=== PATIENT | female | born 2000 | race Caucasian/White ===

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

== ENCOUNTER → 2021-02-03 | Outpatient (CLI) | payer OTHER ==
--- NOTE | 2021-02-03 16:56 | US ---
EXAMINATION TYPE: US OB anatomy trans abd DATE OF EXAM: 02/03/2021 COMPARISON: NONE HISTORY: Z36 Confirm dates Patient has yet to see OB, first US to assess baby and anatomy, no abnorma l symptoms, TECHNIQUE: OBTA EXAM MEASUREMENTS: GESTATIONAL AGE / DATING Physician Established: (22 weeks/3 days) EDC: 06/06/2021 Dates by LMP: unknown Dates by First Scan: No previous Dates by Current Scan for: (21 weeks/6 days) EDC: 06/10/2021 SURVEY IUP: Single PLACENTA: Anterior PREVIA: No previa DESHAUN: 16.1 cm Normal CERVICAL LENGTH (transabdominal: norm > 3.0cm): 3.3 cm BIOMETRY PRESENTATION: Vertex LIE: Longitudinal BPD: 5.2 cm 21 weeks / 6 days HC: 19.4 cm 21 weeks / 5 days AC: 16.2 cm 21 weeks / 3 days FL: 3.8 cm 22 weeks / 0 days ESTIMATED WEIGHT IN GRAMS: 437 grams ESTIMATED WEIGHT IN LBS/OZ: 0 lbs. 15 oz. WEIGHT PERCENTAGE BASED ON ESTABLISHED DATE: 12 % HC/AC: 1.2 Normal FL/AC: 23 Normal HEART RATE: 172 bpm RHYTHM: Normal ANATOMY SEEN (within normal limits): * Lateral Vent (< 1 cm) 0.5 cm * Cisterna Magna (< 1.1 cm) 0.5 cm * Nuchal Fold (< 0.6 cm) 0.3 cm * Cerebellum (varies with age) 2.4 cm Choroid Plexus (bilateral) Midline Falx Cavus Septi Pellucidi Four Chamber Heart Outflow tracts: LVOT/RVOT Stomach Situs Nose / Lips Diaphragm Kidneys (bilateral) Bladder Cord Insert Three Vessel Cord Longitudinal Spine Transverse Spine Arms (bilateral) Legs (bilateral) IMPRESSION: 1. Single intrauterine with an average ultrasound gestational age of 21 weeks and 6 days. L ast menstrual period percentile is 12th percentile. Gestational age by last menstrual period is 22 we eks and 3 days Please see findings above.
== END | disposition home or self-care (01) ==
LOC: RADUSWWP 12:28
PROVIDERS: ATTEND Obstetrics & Gynecology
DX: Z36.89 Encounter for other specified antenatal screening (principal); Z3A.21 21 weeks gestation of pregnancy
CPT/HCPCS: 76811

== ENCOUNTER 2021-06-09 11:59 | Emergency (ER) | payer OTHER ==
[2021-06-09 12:31] VITALS: TEMP 98.5
--- NOTE | 2021-06-09 12:31 | ED ---
General Adult HPI - General Source: patient, RN notes reviewed Mode of arrival: ambulatory Limitations: no limitations <Miki Zimmerman - Last Filed: 06/09/21 12:29> - General Source: patient, RN notes reviewed - History of Present Illness -: days(s) (1) Severity scale (1-10): 0 Associated Symptoms: cough, other Treatments Prior to Arrival: none (Nasal congestion) <Juan Escalante - Last Filed: 06/09/21 16:14> - General Stated complaint: cough/40 wks preg/sent by pcp Time Seen by Provider: 06/09/21 12:24 - History of Present Illness Initial comments: This a 21-year-old female presents emergency Department chief complaint of cough congestion. Patient states she has no symptoms a couple days ago. Patient called her [employer] office who recommended #give evaluated. Patient states she is 40 weeks schedule have an appointment with her [employer]CH[employer] tomorrow Dr. Landeros. Patient states she is A0 currently 40 weeks . Patient states she was unaware for evaluation of a cough throughout COVID-19. (Miki Zimmerman) This is a well-appearing 21-year-old female that presents to the emergency room with cough and congestion. She states that this developed yesterday. She is 40 weeks . Her covid test is negative today. She denies any fevers, abdominal pain or sore throat. She has had no recent sick contacts. She has an appointment to see her SPL[employer] ARCHIT[employer] Dr. Mcneal tomorrow. (Juan Escalante) - Related Data Allergies Allergy/AdvReac Type Severity Reaction Status Date / Time No Known Allergies Allergy Verified 06/09/21 12:27 Review of Systems ROS Other: All systems not noted in ROS Statement are negative. <Miki Zimmerman - Last Filed: 06/09/21 12:29> ROS Other: All systems not noted in ROS Statement are negative. <Juan Escalante - Last Filed: 06/09/21 16:14> ROS Statement: Those systems with pertinent positive or pertinent negative responses have been documented in the HPI. Past Medical History Past Medical History: No Reported History History of Any Multi-Drug Resistant Organisms: None Reported Past Surgical History: No Surgical Hx Reported Past Psychological History: No Psychological Hx Reported Past Alcohol Use History: None Reported Past Drug Use History: None Reported <Miki Zimmerman - Last Filed: 06/09/21 12:29> General Exam General appearance: alert, in no apparent distress Head exam: Present: atraumatic, normocephalic, normal inspection Eye exam: Present: normal appearance, PERRL, EOMI. Absent: scleral icterus, conjunctival injection, periorbital swelling ENT exam: Present: normal exam, normal oropharynx, mucous membranes moist Neck exam: Present: normal inspection, full ROM. Absent: tenderness, meningismus, lymphadenopathy Respiratory exam: Present: normal lung sounds bilaterally. Absent: respiratory distress, wheezes, rales, rhonchi, stridor Cardiovascular Exam: Present: tachycardia GI/Abdominal exam: Present: soft, distended (40 weeks ), normal bowel sounds. Absent: tenderness, guarding, rebound, rigid Back exam: Absent: tenderness Neurological exam: Present: alert, oriented X3, CN II-XII intact Psychiatric exam: Present: normal affect, normal mood Skin exam: Present: warm, dry, intact, normal color. Absent: rash, cyanosis, diaphoretic, petechiae, pallor <Juan Escalante - Last Filed: 06/09/21 16:14> Course Vital Signs 06/09/21 06/09/21 06/09/21 12:27 14:49 15:06 Temperature 98.5 F Pulse Rate 122 H 120 H 123 H Respiratory 18 20 Rate Blood Pressure 138/82 177/91 118/89 O2 Sat by Pulse 93 L Oximetry 06/09/21 15:33 Temperature Pulse Rate 113 H Respiratory Rate Blood Pressure O2 Sat by Pulse 98 Oximetry Medical Decision Making - Lab Data Result diagrams: 06/09/21 15:04 06/09/21 15:04 <Juan Escalante - Last Filed: 06/09/21 16:14> - Medical Decision Making Labs were ordered and drawn by the previous shift. I did speak with Dr. Ramsey regarding the results and he suggested patient be sent up to labor and delivery for evaluation of preeclampsia. (Juan Escalante) - Lab Data Lab Results 06/09/21 06/09/21 06/09/21 Range/Units 12:57 15:04 15:04 WBC 12.6 H (3.8-10.6) k/uL RBC 4.40 (3.80-5.40) m/uL Hgb 11.2 L (11.4-16.0) gm/dL Hct 33.9 L (34.0-46.0) % MCV 77.0 L (80.0-100.0) fL MCH 25.3 (25.0-35.0) pg MCHC 32.9 (31.0-37.0) g/dL RDW 15.4 (11.5-15.5) % Plt Count 228 (150-450) k/uL MPV 10.3 Neutrophils % 83 % Lymphocytes % 9 % Monocytes % 6 % Eosinophils % 1 % Basophils % 0 % Neutrophils # 10.4 H (1.3-7.7) k/uL Lymphocytes # 1.1 (1.0-4.8) k/uL Monocytes # 0.8 (0-1.0) k/uL Eosinophils # 0.1 (0-0.7) k/uL Basophils # 0.0 (0-0.2) k/uL Hypochromasia Slight Poikilocytosis Slight Microcytosis Slight Sodium (137-145) mmol/L Potassium (3.5-5.1) mmol/L Chloride (98-107) mmol/L Carbon Dioxide (22-30) mmol/L Anion Gap mmol/L BUN (7-17) mg/dL Creatinine (0.52-1.04) mg/dL Est GFR (CKD-EPI)AfAm (>60 ml/min/1.73 sqM) Est GFR (CKD-EPI)NonAf (>60 ml/min/1.73 sqM) Glucose (74-99) mg/dL Uric Acid (3.7-7.4) mg/dL Calcium (8.4-10.2) mg/dL Magnesium (1.6-2.3) mg/dL Total Bilirubin (0.2-1.3) mg/dL AST (14-36) U/L ALT (4-34) U/L Alkaline Phosphatase (38-126) U/L Lactate Dehydrogenase (313-618) U/L Total Protein (6.3-8.2) g/dL Albumin (3.5-5.0) g/dL Urine Color Yellow Urine Appearance Cloudy H (Clear) Urine pH 5.5 (5.0-8.0) Ur Specific [place] 1.020 (1.001-1.035) Urine Protein 1+ H (Negative) Urine Glucose (UA) Negative (Negative) Urine Ketones Negative (Negative) Urine Blood Negative (Negative) Urine Nitrite Negative (Negative) Urine Bilirubin Negative (Negative) Urine Urobilinogen <2.0 (<2.0) mg/dL Ur Leukocyte Esterase Large H (Negative) Urine RBC 6 H (0-5) /hpf Urine WBC 39 H (0-5) /hpf Ur Squamous Epith Cells 15 H (0-4) /hpf Urine Bacteria Occasional H (None) /hpf Hyaline Casts 4 H (0-2) /lpf Urine Mucus Moderate H (None) /hpf Urine Yeast (Budding) Occasional H (None) /hpf Coronavirus (PCR) Not Detected (Not Detectd) 06/09/21 Range/Units 15:04 WBC (3.8-10.6) k/uL RBC (3.80-5.40) m/uL Hgb (11.4-16.0) gm/dL Hct (34.0-46.0) % MCV (80.0-100.0) fL MCH (25.0-35.0) pg MCHC (31.0-37.0) g/dL RDW (11.5-15.5) % Plt Count (150-450) k/uL MPV Neutrophils % % Lymphocytes % % Monocytes % % Eosinophils % % Basophils % % Neutrophils # (1.3-7.7) k/uL Lymphocytes # (1.0-4.8) k/uL Monocytes # (0-1.0) k/uL Eosinophils # (0-0.7) k/uL Basophils # (0-0.2) k/uL Hypochromasia Poikilocytosis Microcytosis Sodium 134 L (137-145) mmol/L Potassium 4.4 (3.5-5.1) mmol/L Chloride 105 (98-107) mmol/L Carbon Dioxide 20 L (22-30) mmol/L Anion Gap 9 mmol/L BUN 7 (7-17) mg/dL Creatinine 0.46 L (0.52-1.04) mg/dL Est GFR (CKD-EPI)AfAm >90 (>60 ml/min/1.73 sqM) Est GFR (CKD-EPI)NonAf >90 (>60 ml/min/1.73 sqM) Glucose 71 L (74-99) mg/dL Uric Acid 2.7 L (3.7-7.4) mg/dL Calcium 9.3 (8.4-10.2) mg/dL Magnesium 1.9 (1.6-2.3) mg/dL Total Bilirubin 0.3 (0.2-1.3) mg/dL AST 28 (14-36) U/L ALT 9 (4-34) U/L Alkaline Phosphatase 192 H (38-126) U/L Lactate Dehydrogenase 636 H (313-618) U/L Total Protein 6.6 (6.3-8.2) g/dL Albumin 3.4 L (3.5-5.0) g/dL Urine Color Urine Appearance (Clear) Urine pH (5.0-8.0) Ur Specific [place] (1.001-1.035) Urine Protein (Negative) Urine Glucose (UA) (Negative) Urine Ketones (Negative) Urine Blood (Negative) Urine Nitrite (Negative) Urine Bilirubin (Negative) Urine Urobilinogen (<2.0) mg/dL Ur Leukocyte Esterase (Negative) Urine RBC (0-5) /hpf Urine WBC (0-5) /hpf Ur Squamous Epith Cells (0-4) /hpf Urine Bacteria (None) /hpf Hyaline Casts (0-2) /lpf Urine Mucus (None) /hpf Urine Yeast (Budding) (None) /hpf Coronavirus (PCR) (Not Detectd) Disposition <Miki Zimmerman - Last Filed: 06/09/21 12:29> Is patient prescribed a controlled substance at d/c from ED?: No Time of Disposition: 15:56 <Juan Escalante - Last Filed: 06/09/21 16:14> Clinical Impression: Preeclampsia Disposition: HOME SELF-CARE Instructions (If sedation given, give patient instructions): Preeclampsia During (ED) Referrals: Miguel Harrell MD [Primary Care Provider] - 1-2 days
[2021-06-09 14:55] VITALS: RESP 20
[2021-06-09 15:07] VITALS: BP 118/89
[2021-06-09 15:25] LABS: Appearance,Urine Cloudy (Clear); Bacteria,Urine Occasional /hpf; Bilirubin,Urine Negative (Negative); Blood,Urine Negative (Negative); Budding Yeast,Urine Occasional /hpf; Color,Urine Yellow; Glucose,Urine (UA) Negative (Negative); Hyaline Casts,Urine 4 /lpf (0-2); Ketones,Urine Negative (Negative); Leukocyte Esterase,Urine Large (Negative); Mucus,Urine Moderate /hpf; Nitrite,Urine Negative (Negative); PH, Urine 5.5 (5.0-8.0); Protein,Urine 1+ (Negative); RBC,Urine 6 /hpf (0-5); Squamous Epithelial Cell,Urine 15 /hpf (0-4); Urobilinogen,Urine <2.0 mg/dL (<2.0); WBC,Urine 39 /hpf (0-5)
[2021-06-09 15:32] LABS: Basophils % (A) 0 %; Eosinophils # (A) 0.1 k/uL (0-0.7); Eosinophils % (A) 1 %; HCT 33.9 % (34.0-46.0); HGB 11.2 gm/dL (11.4-16.0); Hypochromasia Slight; Lymphocytes # (A) 1.1 k/uL (1.0-4.8); Lymphocytes % (A) 9 %; MCH 25.3 pg (25.0-35.0); MCHC 32.9 g/dL (31.0-37.0); Mean Platelet Volume 10.3; Microcytosis Slight; Monocytes # (A) 0.8 k/uL (0-1.0); Monocytes % (A) 6 %; Neutrophils # (A) 10.4 k/uL (1.3-7.7); Neutrophils % (A) 83 %; Platelet Count 228 k/uL (150-450); Poikilocytosis Slight; RDW 15.4 % (11.5-15.5); WBC 12.6 k/uL (3.8-10.6)
[2021-06-09 15:33] VITALS: PULSE 113
[2021-06-09 15:42] LABS: ALT 9 U/L (4-34); AST 28 U/L (14-36); African American GFR (CKD) >90 (>60 ml/min/1.73 sqM); Albumin 3.4 g/dL (3.5-5.0); Alkaline Phosphatase 192 U/L (38-126); Anion Gap 9 mmol/L; Blood Urea Nitrogen 7 mg/dL (7-17); Calcium 9.3 mg/dL (8.4-10.2); Carbon Dioxide 20 mmol/L (22-30); Chloride 105 mmol/L (98-107); Glucose 71 mg/dL (74-99); LDH 636 U/L (313-618); Magnesium 1.9 mg/dL (1.6-2.3); Non-African American GFR(CKD) >90 (>60 ml/min/1.73 sqM); Potassium 4.4 mmol/L (3.5-5.1); Sodium 134 mmol/L (137-145); Total Bilirubin 0.3 mg/dL (0.2-1.3); Total Protein 6.6 g/dL (6.3-8.2); Uric Acid 2.7 mg/dL (3.7-7.4)
== END 2021-06-09 15:58 | disposition home or self-care (01) ==
LOC: EC 11:59
DX: O14.93 Unspecified pre-eclampsia, third trimester (principal); O99.891 Other specified diseases and conditions complicating pregnancy; R05 Cough; R09.81 Nasal congestion; Z3A.40 40 weeks gestation of pregnancy; Z20.822 Contact with and (suspected) exposure to COVID-19
CPT/HCPCS: 36415; 80053; 81001; 83615; 83735; 84550; 85025; 87086; 87635; 99283

== ENCOUNTER 2021-06-09 16:07 | Inpatient (IN) | payer OTHER ==
[2021-06-09] MEDS ORDERED: CARBOPROST TROMETHAMINE 250 MCG/ML 1 ML AMP IM PRN (17:36)
[2021-06-09] MEDS ORDERED: LIDOCAINE 0.5% (PF) 5 MG/ML (50 ML SDV) SQ PRN (17:36)
[2021-06-09] MEDS ORDERED: TERBUTALINE 1 MG/ML VIAL SQ PRN (17:36)
[2021-06-09] MEDS ORDERED: OXYTOCIN 10 UNIT/ML 1 ML VIAL IM PRN (17:36)
[2021-06-09] MEDS ORDERED: METHYLERGONOVINE 0.2 MG/ML 1 ML AMP IM PRN (17:36)
[2021-06-09] MEDS ORDERED: OXYTOCIN 30 UNITS/500 ML NS 30 UNIT in SALINE 1 500ML.BAG IV SCH (17:45)
[2021-06-09] MEDS ORDERED: guaiFENesin SYRUP 100MG/5ML 200 MG/10 ML CUP PO PRN (18:05)
[2021-06-09 18:39] LABS: Amphetamine Screen,Urine Not Detected (NotDetected); Barbiturate Screen,Urine Not Detected (NotDetected); Benzodiazepines Screen,Urine Not Detected (NotDetected); Cocaine Screen,Urine Not Detected (NotDetected); Methadone Screen, Urine Not Detected (NotDetected); Opiate Screen,Urine Not Detected (NotDetected); Oxycodone Screen, Urine Not Detected (NotDetected); Phencyclidine Screen,Urine Not Detected (NotDetected); Tricyclic Antidepressant,Urine Not Detected (NotDetected); Urn Cannabinoid Scrn Not Detected (NotDetected)
--- NOTE | 2021-06-09 18:53 | P.HPOB ---
History of Present Illness H&P Date: 06/09/21 Chief Complaint: Intrauterine at term: Gestational hypertension: S jesus alberto NORRIS is a 21-year-old at 39 weeks gestation who arrives from the emergency room following episode of upper respiratory infection. She was seen in the emergency room and noted to have an elevated blood pressures in the emergency room and therefore preeclamptic labs were ordered through the emergency room. They were per [place] normal with slight elevation of LDH. 1+ protein but there was blood and other components within a poor urine sample with squamous epithelial cells. Difficult to relate whether that is truly protein positive or not. She was brought to labor and delivery where nonstress test was reactive and otherwise blood pressures have been mildly elevated with one blood pressure 1 4135 several the 130s over 80s and then a 130/101. She denies symptoms of preeclampsia no headache, epigastric pain or visual changes there is no other signs or symptoms with normal deep tendon reflexes and otherwise she is stable. 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 That is approximately 12-18 weeks of lack of care. Groupie strep is unknown. We'll plan group B strep prophylaxis. Due to gestational hypertension and sporadic care. She is being admitted with plan for induction in a.m. once she can get 2 doses of antibiotics for group B strep prophylaxis. Should she have any significant elevations in blood pressure signs or symptoms of eclampsia or other problems through the night we will initiate induction at that time. She is dilated 3 cm 70% effaced and -2 station. She relates no other competitions or issues at this time. And at least for now QUESTIONS are answered for her. Past Medical History Past Medical History: No Reported History History of Any Multi-Drug Resistant Organisms: None Reported Past Surgical History: No Surgical Hx Reported Past Anesthesia/Blood Transfusion Reactions: No Reported Reaction Past Psychological History: No Psychological Hx Reported Smoking Status: Former smoker Past Alcohol Use History: None Reported Past Drug Use History: None Reported Additional Drug Use History / Comment(s): pt has history of meth use, last used Sep 20 - Past Family History Sister(s) Family Medical History: Asthma Father Family Medical History: Musculoskeletal Disorder Additional Family Medical History / Comment(s): issues with back Mother Additional Family Medical History / Comment(s): personality disorder Medications and Allergies Home Medications Medication Instructions Recorded Confirmed Type Pnv No.95/Ferrous Fum/Folic AC 1 each PO DAILY 06/09/21 06/09/21 History [ Multivitamin Tablet] Allergies Allergy/AdvReac Type Severity Reaction Status Date / Time No Known Allergies Allergy Verified 06/09/21 12:27 Exam Osteopathic Statement: *. No significant issues noted on an osteopathic structural exam other than those noted in the History and Physical/Consult. Vital Signs Temp Pulse Resp BP 06/09/21 17:05 98.1 F 111 H 18 138/101 Intake and Output 06/09/21 06/09/21 06/09/21 06:59 14:59 22:59 Other: Weight 82.1 kg - OBG Physical Exam Breast: both: normal (no masses) Abdomen: bowel sounds normal, no diffuse tenderness, no bruit present, no guarding noted, no hepatomegaly, no splenomegaly, no mass Vulva: both: normal Vagina: normal moisture, no discharge Cervix: no lesion, no discharge Uterus: normal size, normal contour Adnexa: both: normal Anus/Rectum: normal perianal skin, no rectal mass, no hemorrhoids, heme negative
[2021-06-09] MEDS: LACTATED RINGERS 1,000 ML IV SCH (21:39)
[2021-06-10] MEDS: LACTATED RINGERS 1,000 ML IV SCH ×3 (01:38→09:57)
[2021-06-10] MEDS ORDERED: AMPICILLIN 2,000 MG in SODIUM CHLORIDE 0.9% 100 ML IVPB ONE (06:00)
[2021-06-10 06:21] LABS: Basophils % (A) 0 %; Eosinophils # (A) 0.1 k/uL (0-0.7); Eosinophils % (A) 1 %; HCT 32.8 % (34.0-46.0); HGB 10.5 gm/dL (11.4-16.0); Hypochromasia Slight; Lymphocytes # (A) 1.3 k/uL (1.0-4.8); Lymphocytes % (A) 11 %; Mean Platelet Volume 9.5; Monocytes # (A) 0.6 k/uL (0-1.0); Monocytes % (A) 5 %; Neutrophils # (A) 9.3 k/uL (1.3-7.7); Neutrophils % (A) 81 %; Platelet Count 226 k/uL (150-450); RBC 4.21 m/uL (3.80-5.40); RDW 15.2 % (11.5-15.5); WBC 11.5 k/uL (3.8-10.6)
[2021-06-10] MEDS ORDERED: fentaNYL (PF) 50 MCG/ML 5 ML AMP ONE (09:45)
[2021-06-10] MEDS ORDERED: SODIUM CHLORIDE 0.9% 100 ML BAG ONE (09:45)
[2021-06-10] MEDS ORDERED: ROPIVACAINE 5MG/ML 20ML VIAL ONE (09:45)
[2021-06-10] MEDS ORDERED: AMPICILLIN 1,000 MG in SODIUM CHLORIDE 0.9% 50 ML IVPB SCH (11:00)
[2021-06-10] MEDS ORDERED: diphenhydrAMINE 50 MG/ML 1 ML VIAL IVP PRN ×2 (12:34)
[2021-06-10] MEDS ORDERED: BENZOCAINE/MENTHOL SPRAY 1 GM/SPRAY AEROSOL TOPICAL PRN (12:34)
[2021-06-10] MEDS ORDERED: ACETAMINOPHEN TAB 325 MG TAB PO PRN (12:34)
[2021-06-10] MEDS ORDERED: LANOLIN CREAM 5 GM TUBE TOPICAL PRN (12:34)
[2021-06-10] MEDS ORDERED: diphenhydrAMINE 50 MG CAP PO PRN (12:34)
[2021-06-10] MEDS ORDERED: HYDROCORTISONE 2.5% RECTAL CREAM 30 GM TUBE RECTAL PRN (12:34)
[2021-06-10] MEDS ORDERED: SIMETHICONE 80 MG CHEWABLE PO PRN (12:34)
[2021-06-10] MEDS ORDERED: diphenhydrAMINE 25 MG CAP PO PRN (12:34)
[2021-06-10] MEDS ORDERED: ZOLPIDEM 5 MG TAB PO PRN (12:34)
--- NOTE | 2021-06-10 12:34 | P.PROBDLV ---
Vaginal Delivery Note - . Vaginal Delivery Note: 29-year-old presented at 40 weeks for induction of labor due to gestational hypertension. She has had no care except anatomy ultrasound which was normal. Her cervix is 3 cm dilated, 80% effaced, and -2 station. She is rahul irregularly. heart tones 130 with moderate variability and reactive. Pitocin augmentation was started amniotomy performed at 8:29 AM and clear fluid noted. She did get an epidural soon thereafter. Her cervix was completely dilated at 11:59 AM. She pushed, rub viable male infant over intact perineum under epidural anesthesia at 12:05 PM. Head delivered OA, anterior shoulder delivered gentle downward guidance followed by posterior shoulder and rest of body. Nose and mouth bulb suctioned, cord cut, infant placed mother's abdomen. Apgars 9, 9, weight 7 lbs. 7 oz. Placenta delivered spontaneously, intact with three-vessel cord at 1208. Vagina, cervix, perineum inspected. Left labial laceration was repaired with 3-0 Vicryl. Estimated blood loss 200 mL. Mother and baby in stable condition.
[2021-06-10] MEDS ORDERED: OXYTOCIN 30 UNITS/500 ML NS 30 UNIT in SALINE 1 500ML.BAG IV SCH (12:45)
[2021-06-10] MEDS: IBUPROFEN 600 MG TAB PO PRN (18:37)
[2021-06-10] MEDS: SENNOSIDES-DOCUSATE SODIUM 1 EACH TAB PO SCH (20:17)
[2021-06-10 20:58] LABS: HIV 2 AB Non-Reactive (Non-Reactive); HIV AB P24 Non-Reactive (Non-Reactive); HIV P24 AG Non-Reactive (Non-Reactive)
[2021-06-10 22:40] LABS: Hepatitis B Surface Antigen Non-Reactive (Non-Reactive)
[2021-06-11] MEDS: IBUPROFEN 600 MG TAB PO PRN ×2 (04:48→14:32)
[2021-06-11 06:33] LABS: Basophils % (A) 0 %; Eosinophils # (A) 0.1 k/uL (0-0.7); Eosinophils % (A) 2 %; HCT 30.4 % (34.0-46.0); Hypochromasia Slight; Lymphocytes # (A) 1.5 k/uL (1.0-4.8); Lymphocytes % (A) 17 %; MCH 25.5 pg (25.0-35.0); MCHC 32.9 g/dL (31.0-37.0); MCV 77.4 fL (80.0-100.0); Mean Platelet Volume 9.7; Microcytosis Slight; Monocytes # (A) 0.5 k/uL (0-1.0); Monocytes % (A) 6 %; Neutrophils % (A) 71 %; Platelet Count 200 k/uL (150-450); Poikilocytosis Slight; RBC 3.92 m/uL (3.80-5.40); RDW 15.7 % (11.5-15.5); WBC 8.5 k/uL (3.8-10.6)
--- NOTE | 2021-06-11 07:48 | P.DS ---
Providers Date of admission: 06/09/21 17:00 Expected date of discharge: 06/11/21 Attending physician: Margarita Mcneal Primary care physician: Stated None - Discharge Diagnosis(es) (1) Normal vaginal delivery Current Visit: Yes Status: Acute Hospital Course: Pt presented with gestational hypertension. She underwent a normal vaginal delivery with induction of labor. course was uncomplicated. She will be discharged home ppd #1 in stable condition to follow up with me in 6 weeks. Plan - Discharge Summary New Discharge Prescriptions: New Ibuprofen [Motrin] 600 mg PO Q6HR PRN #30 tab PRN Reason: Mild Pain Or Fever >= 100.5 No Action Pnv No.95/Ferrous Fum/Folic AC [ Multivitamin Tablet] 1 each PO DAILY Discharge Medication List Pnv No.95/Ferrous Fum/Folic AC [ Multivitamin Tablet] 1 each PO DAILY 06/09/21 [History] Ibuprofen [Motrin] 600 mg PO Q6HR PRN #30 tab 06/11/21 [Rx] Follow up Appointment(s)/Referral(s): Margarita Mcneal DO [Doctor of Osteopathic Medicine] - 07/23/21 11:15 am Discharge Disposition: HOME SELF-CARE
[2021-06-11] MEDS: SENNOSIDES-DOCUSATE SODIUM 1 EACH TAB PO SCH (09:43)
[2021-06-12] MEDS: SENNOSIDES-DOCUSATE SODIUM 1 EACH TAB PO SCH ×2 (01:58→10:34)
[2021-06-12] MEDS: IBUPROFEN 600 MG TAB PO PRN (03:21)
[2021-06-12 10:21] VITALS: BP 132/82; PULSE 81; RESP 18; TEMP 98.4
== END 2021-06-12 12:54 | disposition home or self-care (01) | DRG 807 ==
LOC: FBPOP 16:07 → 4FBP 17:00
PROVIDERS: ADMIT Obstetrics & Gynecology; ATTEND Obstetrics & Gynecology
PROC: 10E0XZZ Delivery of Products of Conception, External Approach (ICD-10-PCS; principal; 2021-06-10)
PROC: 0HQ9XZZ Repair Perineum Skin, External Approach (ICD-10-PCS; 2021-06-10)
DX: O13.4 Gestational [pregnancy-induced] hypertension without significant proteinuria, complicating childbirth (principal); Z37.0 Single live birth; O70.0 First degree perineal laceration during delivery; O99.324 Drug use complicating childbirth; Z3A.39 39 weeks gestation of pregnancy; Z82.5 Family history of asthma and other chronic lower respiratory diseases; Z87.891 Personal history of nicotine dependence
CPT/HCPCS: 36415; 59025; 80053; 80306; 81001; 83615; 83735; 84550; 85025; 86762; 86780; 86850; 86900; 86901; 87086; 87340; 87390; 87635; 88307; 99213; 99283

== ENCOUNTER 2022-07-21 10:16 | Emergency (ER) | payer OTHER ==
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
--- NOTE | 2022-07-21 13:20 | XR ---
EXAMINATION TYPE: XR pelvis AP view DATE OF EXAM: 07/21/2022 COMPARISON: NONE HISTORY: Pain The osseous structures are intact and the joint spaces are preserved. No acute fracture is seen. Vi sualized bowel gas pattern is nonspecific. Sclerotic density overlying the right femoral neck. Most likely related to bone island. IMPRESSION: 1. No acute fracture.
[2022-07-21 13:45] VITALS: BP 118/81; PULSE 67; RESP 16; TEMP 98.2
== END 2022-07-21 13:45 | disposition home or self-care (01) ==
LOC: EC 10:16
DX: M25.511 Pain in right shoulder (principal); F17.290 Nicotine dependence, other tobacco product, uncomplicated; V49.50XA Passenger injured in collision with unspecified motor vehicles in traffic accident, initial encounter
CPT/HCPCS: 71046; 72170; 99284

== ENCOUNTER 2023-02-03 11:50 | Emergency (ER) | payer OTHER ==
--- NOTE | 2023-02-03 13:02 | ED ---
Recheck HPI - General Source: patient, RN notes reviewed Mode of arrival: ambulatory Limitations: no limitations <Miki Zimmerman - Last Filed: 02/03/23 13:01> - History of Present Illness MD Complaint: wound re-check -: days(s) Initial Visit For: other Returns Today for: persistent/worsening pain related to initial visit Symptoms Since Prior Visit: no new symptoms Associated Symptoms: none <Bebeto Oliver - Last Filed: 02/08/23 06:14> - General Chief Complaint: Recheck/Abnormal Lab/Rx Stated Complaint: post op Time Seen by Provider: 02/03/23 13:01 - History of Present Illness Initial Comments: 23-year-old female presents emergency Department chief complaint of abdominal pain, vaginal bleeding. Patient states she had an on Wednesday. Patient is A2. Patient states that she is passing large clots, using 2 pads an hour. Patient states feels lightheaded (Miki Zimmerman) This patient presents to have evaluation for pelvic pains and vaginal bleeding after having had surgical Wednesday at a clinic in [place]. Passing clots approximate quarter-sized. A search of the record reveals previous blood bank typing as AB+ (Bebeto Oliver) - Related Data Home Medications Medication Instructions Recorded Confirmed Pnv No.95/Ferrous Fum/Folic AC 1 each PO DAILY 06/09/21 06/09/21 [ Multivitamin Tablet] Previous Rx's Medication Instructions Recorded Ibuprofen [Motrin] 600 mg PO Q6HR PRN #30 tab 06/11/21 Allergies Allergy/AdvReac Type Severity Reaction Status Date / Time No Known Allergies Allergy Verified 02/03/23 12:57 Review of Systems ROS Other: All systems not noted in ROS Statement are negative. <Miki Zimmerman - Last Filed: 02/03/23 13:01> ROS Other: All systems not noted in ROS Statement are negative. Constitutional: Denies: fever, chills Respiratory: Denies: cough, dyspnea Cardiovascular: Denies: chest pain, palpitations, edema Gastrointestinal: Reports: abdominal pain, nausea. Denies: vomiting, diarrhea, constipation Genitourinary: Reports: abnormal menses. Denies: dysuria, hematuria, discharge Musculoskeletal: Denies: back pain Skin: Denies: rash Neurological: Denies: headache, weakness <Bebeto Oliver - Last Filed: 02/08/23 06:14> ROS Statement: Those systems with pertinent positive or pertinent negative responses have been documented in the HPI. Past Medical History Past Medical History: No Reported History History of Any Multi-Drug Resistant Organisms: None Reported Past Surgical History: No Surgical Hx Reported Additional Past Surgical History / Comment(s): D&C Past Anesthesia/Blood Transfusion Reactions: No Reported Reaction Past Psychological History: No Psychological Hx Reported Smoking Status: Vaper Past Alcohol Use History: Occasional Past Drug Use History: None Reported - Past Family History Sister(s) Family Medical History: Asthma Father Family Medical History: Musculoskeletal Disorder Additional Family Medical History / Comment(s): issues with back Mother Additional Family Medical History / Comment(s): personality disorder <Miki Zimmerman Anoop - Last Filed: 02/03/23 13:01> General Exam Limitations: no limitations <Miki Zimmerman Anoop - Last Filed: 02/03/23 13:01> Limitations: no limitations General appearance: alert, in no apparent distress Head exam: Present: atraumatic, normocephalic Eye exam: Present: normal appearance. Absent: scleral icterus, conjunctival injection Neck exam: Present: normal inspection Respiratory exam: Present: normal lung sounds bilaterally. Absent: respiratory distress, wheezes, rales, rhonchi, stridor Cardiovascular Exam: Present: regular rate, normal rhythm, normal heart sounds. Absent: systolic murmur, diastolic murmur, rubs, gallop GI/Abdominal exam: Present: soft. Absent: distended, tenderness, guarding, rebound, rigid, mass, pulsatile mass Extremities exam: Present: normal inspection, normal capillary refill. Absent: pedal edema, calf tenderness Back exam: Present: normal inspection. Absent: CVA tenderness (R), CVA tenderness (L) Neurological exam: Present: alert Skin exam: Present: warm, dry, intact, normal color. Absent: rash <Bebeto Oliver - Last Filed: 02/08/23 06:14> Course Vital Signs 02/03/23 02/03/23 12:54 17:51 Temperature 98.1 F 99.5 F Pulse Rate 80 86 Respiratory 20 16 Rate Blood Pressure 127/86 120/71 O2 Sat by Pulse 100 99 Oximetry Medical Decision Making - Lab Data Result diagrams: 02/03/23 15:14 02/03/23 15:14 <Bebeto Oliver - Last Filed: 02/08/23 06:14> - Medical Decision Making This patient is a 23-year-old woman here with vaginal bleeding following surgical DNC. The patient vital signs and labs are stable. The workup basically completed by the time she got back to the room. I went and reviewed the tests and given the ultrasound showing possible retained products, had placed a page for gynecology. Dr. Simon called back promptly prior to the patient having had GEN exam. We discussed the case and her recommendations are incorporated. I then went saw the patient to states that the bleeding continues to be relatively slow and she declined GEN exam at this point. Patient will follow with Dr. her Vargas. Was pt. sent in by a medical professional or institution (, PA, SWAGING MACHINE ADJUSTER, urgent care, hospital, or longterm...) When possible be specific @ -[No] Did you speak to anyone other than the patient for history (EMS, parent, family, police, friend...)? What history was obtained from this source @ -[No] Did you review nursing and triage notes (agree or disagree)? Why? @ -[I reviewed and agree with nursing and triage notes] Were old charts reviewed (outside hosp., previous admission, EMS record, old EKG, old radiological studies, urgent care reports/EKG's, longterm records)? Report findings @ -[No old charts were reviewed] Differential Diagnosis (chest pain, altered mental status, abdominal pain women, abdominal pain men, vaginal bleeding, weakness, fever, dyspnea, syncope, headache, dizziness, GI bleed, back pain, seizure, CVA, palpatations, mental health, musculoskeletal)? @ -[Differential Vaginal Bleeding: Spontaneous , threatened , molar , ectopic , bloody show, incompetent cervix, abruptioplacenta, placenta previa, uterine rup ture, dysfunctional uterine bleeding, hemorrhage, uterine fibroids, this is not meant to be an all-inclusive list. EKG interpreted by me (3pts min.). @ -[ X-rays interpreted by me (1pt min.). @ -[None done] CT interpreted by me (1pt min.). @ -[None done] U/S interpreted by me (1pt. min.). @ -[None done] What testing was considered but not performed or refused? (CT, X-rays, U/S, labs)? Why? @ -[None] What meds were considered but not given or refused? Why? @ -[None] Did you discuss the management of the patient with other professionals (p rofessionals i.e. , PA, SWAGING MACHINE ADJUSTER, lab, RT, psych nurse, social insurance analyst, lamp decorator, teacher, chief human resources officer, geriatric case manager)? Give summary @ -[Case discussed with child welfare counselor credit verification clerk Was smoking cessation discussed for >3mins.? @ -[No] Was critical care preformed (if so, how long)? @ -[No] Were there social determinants of health that impacted care today? How? (Homelessness, low income, unemployed, alcoholism, drug addiction, transportation, low edu. Level, literacy, decrease access to med. care, shelter, rehab)? @ -[No] Was there de-escalation of care discussed even if they declined (Discuss DNR or withdrawal of care, Hospice)? DNR status @ -[No] What co-morbidities impacted this encounter? (DM, HTN, Smoking, COPD, CAD, Cancer, CVA, ARF, Chemo, Hep., AIDS, mental health diagnosis, sleep apnea, morbid obesity)? @ -[None] Was patient admitted / discharged? Hospital course, mention meds given and route, prescriptions, significant lab abnormalities, going to OR and other p ertinent info. @ -[The patient is discharged with follow-up as above and strict return parameters Undiagnosed new problem with uncertain prognosis? @ -[No] Drug Therapy requiring intensive monitoring for toxicity (Heparin, Nitro, Insulin, Cardizem)? @ -[No] Were any procedures done? @ -[No] Diagnosis/symptom? @ -Post procedural vaginal bleeding Acute, or Chronic, or Acute on Chronic? @ -[Acute Uncomplicated (without systemic symptoms) or Complicated (systemic symptoms)? @ -[Uncomplicated Side effects of treatment? @ -[No] Exacerbation, Progression, or Severe Exacerbation? @ -[No] Poses a threat to life or bodily function? How? (Chest pain, [place], [place], pneumonia, PE, COPD, DKA, ARF, appy, cholecystitis, CVA, Diverticulitis, Homicidal, Suicidal, threat to staff... and all critical care pts) @ -[No] (Bebeto Oliver) - Lab Data Lab Results 02/03/23 02/03/23 02/03/23 Range/Units 15:14 15:14 15:57 WBC 6.0 (3.8-10.6) k/uL RBC 4.70 (3.80-5.40) m/uL Hgb 12.5 (11.4-16.0) gm/dL Hct 37.8 (34.0-46.0) % MCV 80.4 (80.0-100.0) fL MCH 26.6 (25.0-35.0) pg MCHC 33.1 (31.0-37.0) g/dL RDW 15.0 (11.5-15.5) % Plt Count 221 (150-450) k/uL MPV 8.4 Neutrophils % 72 % Lymphocytes % 21 % Monocytes % 5 % Eosinophils % 1 % Basophils % 0 % Neutrophils # 4.3 (1.3-7.7) k/uL Lymphocytes # 1.3 (1.0-4.8) k/uL Monocytes # 0.3 (0-1.0) k/uL Eosinophils # 0.1 (0-0.7) k/uL Basophils # 0.0 (0-0.2) k/uL Sodium 140 (137-145) mmol/L Potassium 3.7 (3.5-5.1) mmol/L Chloride 107 (98-107) mmol/L Carbon Dioxide 22 (22-30) mmol/L Anion Gap 11 mmol/L BUN 7 (7-17) mg/dL Creatinine 0.59 (0.52-1.04) mg/dL Est GFR (CKD-EPI)AfAm >90 (>60 ml/min/1.73 sqM) Est GFR (CKD-EPI)NonAf >90 (>60 ml/min/1.73 sqM) Glucose 84 (74-99) mg/dL Calcium 8.7 (8.4-10.2) mg/dL Total Bilirubin 0.4 (0.2-1.3) mg/dL AST 21 (14-36) U/L ALT 13 (4-34) U/L Alkaline Phosphatase 52 (38-126) U/L Total Protein 7.2 (6.3-8.2) g/dL Albumin 4.1 (3.5-5.0) g/dL HCG, Quant 3111.3 mIU/mL Urine Color Yellow Urine Appearance Clear (Clear) Urine pH 6.5 (5.0-8.0) Ur Specific [place] 1.015 (1.001-1.035) Urine Protein Negative (Negative) Urine Glucose (UA) Negative (Negative) Urine Ketones Negative (Negative) Urine Blood Large H (Negative) Urine Nitrite Negative (Negative) Urine Bilirubin Negative (Negative) Urine Urobilinogen <2.0 (<2.0) mg/dL Ur Leukocyte Esterase Small H (Negative) Urine RBC 8 H (0-5) /hpf Urine WBC 23 H (0-5) /hpf Ur Squamous Epith Cells 3 (0-4) /hpf Urine Bacteria Rare H (None) /hpf Urine Mucus Occasional H (None) /hpf Disposition <Miki Zimmerman - Last Filed: 02/03/23 13:01> Is patient prescribed a controlled substance at d/c from ED?: No <Bebeto Oliver - Last Filed: 02/08/23 06:14> Clinical Impression: Vaginal bleeding Disposition: HOME SELF-CARE Condition: Good Instructions (If sedation given, give patient instructions): *[facility] - ([facility]) D&C Post-Op Instructions Referrals: Miguel Harrell MD [Primary Care Provider] - 1-2 days Marilee Simon MD [STAFF PHYSICIAN] - 1-2 days
--- NOTE | 2023-02-03 14:08 | US ---
EXAMINATION TYPE: US pelvic complete DATE OF EXAM: 02/03/2023 COMPARISON: NONE CLINICAL INDICATION: Female, 23 years old with history of Pain, bleeding, ; Patient states moya ving a surgical on Wednesday- 4 days ago. Patient states passing clots. TECHNIQUE: Transabdominal (TA). Transabdominal sonographic images of the pelvis were acquired. Tra nsvaginal sonographic images were deferred due to recent surgery and nonsterile ultrasound probe. Date of LMP: 12/11/2022, EXAM MEASUREMENTS: Uterus: 8.2 x 6.1 x 4.3 cm Endometrial Stripe: 1.7 cm Right Ovary: 3.0 x 1.7 x 1.4 cm Left Ovary: 2.7 x 2.4 x 2.0 cm 1. Uterus: Anteverted wnl 2. Endometrium: Appears thickened and heterogenous, no intrauterine gestation identified. 3. Right Ovary: wnl 4. Left Ovary: wnl 5. Bilateral Adnexa: wnl 6. Posterior cul-de-sac: free fluid 7. Cervix- wnl IMPRESSION: Thickened endometrium with heterogenous appearance. Correlate for retained products of conception. No intrauterine gestation identified.
[2023-02-03 15:23] LABS: Basophils % (A) 0 %; Eosinophils # (A) 0.1 k/uL (0-0.7); Eosinophils % (A) 1 %; HCT 37.8 % (34.0-46.0); HGB 12.5 gm/dL (11.4-16.0); Lymphocytes # (A) 1.3 k/uL (1.0-4.8); Lymphocytes % (A) 21 %; MCH 26.6 pg (25.0-35.0); MCHC 33.1 g/dL (31.0-37.0); MCV 80.4 fL (80.0-100.0); Mean Platelet Volume 8.4; Monocytes # (A) 0.3 k/uL (0-1.0); Monocytes % (A) 5 %; Neutrophils # (A) 4.3 k/uL (1.3-7.7); Neutrophils % (A) 72 %; Platelet Count 221 k/uL (150-450)
[2023-02-03 15:32] LABS: ALT 13 U/L (4-34); AST 21 U/L (14-36); African American GFR (CKD) >90 (>60 ml/min/1.73 sqM); Albumin 4.1 g/dL (3.5-5.0); Alkaline Phosphatase 52 U/L (38-126); Anion Gap 11 mmol/L; Blood Urea Nitrogen 7 mg/dL (7-17); Calcium 8.7 mg/dL (8.4-10.2); Carbon Dioxide 22 mmol/L (22-30); Chloride 107 mmol/L (98-107); Glucose 84 mg/dL (74-99); Non-African American GFR(CKD) >90 (>60 ml/min/1.73 sqM); Potassium 3.7 mmol/L (3.5-5.1); Sodium 140 mmol/L (137-145); Total Bilirubin 0.4 mg/dL (0.2-1.3); Total Protein 7.2 g/dL (6.3-8.2)
[2023-02-03 15:49] LABS: HCG,Quantitative Serum 3111.3 mIU/mL
[2023-02-03 16:19] LABS: Appearance,Urine Clear (Clear); Bacteria,Urine Rare /hpf; Bilirubin,Urine Negative (Negative); Blood,Urine Large (Negative); Color,Urine Yellow; Glucose,Urine (UA) Negative (Negative); Ketones,Urine Negative (Negative); Leukocyte Esterase,Urine Small (Negative); Mucus,Urine Occasional /hpf; Nitrite,Urine Negative (Negative); PH, Urine 6.5 (5.0-8.0); Protein,Urine Negative (Negative); RBC,Urine 8 /hpf (0-5); Specific Gravity,Urine 1.015 (1.001-1.035); Squamous Epithelial Cell,Urine 3 /hpf (0-4); Urobilinogen,Urine <2.0 mg/dL (<2.0); WBC,Urine 23 /hpf (0-5)
[2023-02-03] MEDS ORDERED: METHYLERGONOVINE 0.2 MG/ML 1 ML AMP IM ONE (17:18)
[2023-02-03 17:58] VITALS: BP 120/71; PULSE 86; RESP 16; TEMP 99.5
== END 2023-02-03 17:55 | disposition home or self-care (01) ==
LOC: EC 11:50
DX: N93.9 Abnormal uterine and vaginal bleeding, unspecified (principal); F17.290 Nicotine dependence, other tobacco product, uncomplicated
CPT/HCPCS: 36415; 80053; 85025; 81001; 84702; 76856; 99284; 96372; J2210

== ENCOUNTER 2023-07-22 10:10 | Emergency (ER) | payer OTHER ==
[2023-07-22 10:41] VITALS: RESP 18
--- NOTE | 2023-07-22 10:52 | ED ---
ENT HPI - General Chief complaint: ENT Stated complaint: sore throat Time Seen by Provider: 07/22/23 10:32 Source: patient, RN notes reviewed Mode of arrival: ambulatory Limitations: no limitations - History of Present Illness Initial comments: Patient is a 23-year-old female presented ER with chief complaint of sore throat. Patient states her throat started hurting a couple days ago. She denies any cough, congestion, fevers, night sweats/chills. Patient has tried taking [id number] Tylenol Motrin with no relief of her symptoms. Patient denies any known sick contacts. Denies any chest pain, shortness breath, abdominal pain, urinary symptoms. - Related Data Home Medications Medication Instructions Recorded Confirmed Pnv No.95/Ferrous Fum/Folic AC 1 each PO DAILY 06/09/21 06/09/21 [ Multivitamin Tablet] Previous Rx's Medication Instructions Recorded Ibuprofen [Motrin] 600 mg PO Q6HR PRN #30 tab 06/11/21 Amoxic-Pot Clav 875-125Mg 1 tab PO Q12HR 10 Days #20 tab 07/22/23 [Augmentin 875-125] Allergies Allergy/AdvReac Type Severity Reaction Status Date / Time No Known Allergies Allergy Verified 07/22/23 10:20 Review of Systems ROS Statement: Those systems with pertinent positive or pertinent negative responses have been documented in the HPI. ROS Other: All systems not noted in ROS Statement are negative. Past Medical History Past Medical History: No Reported History History of Any Multi-Drug Resistant Organisms: None Reported Past Surgical History: No Surgical Hx Reported Additional Past Surgical History / Comment(s): D&C Past Anesthesia/Blood Transfusion Reactions: No Reported Reaction Past Psychological History: No Psychological Hx Reported Smoking Status: Vaper Past Alcohol Use History: Occasional Past Drug Use History: None Reported - Past Family History Sister(s) Family Medical History: Asthma Father Family Medical History: Musculoskeletal Disorder Additional Family Medical History / Comment(s): issues with back Mother Additional Family Medical History / Comment(s): personality disorder General Exam Limitations: no limitations General appearance: alert, in no apparent distress ENT exam: Present: normal exam, mucous membranes moist, TM's normal bilaterally, normal external ear exam, other (left tonsil mucocele noted. Erythematous tonsils and oropharynx.) Neck exam: Present: normal inspection. Absent: tenderness, meningismus, lymphadenopathy Respiratory exam: Present: normal lung sounds bilaterally. Absent: respiratory distress, wheezes, rales, rhonchi, stridor Cardiovascular Exam: Present: normal rhythm, tachycardia, normal heart sounds. Absent: systolic murmur, diastolic murmur, rubs, gallop, clicks Course Vital Signs 07/22/23 10:18 Temperature 99.2 F Pulse Rate 110 H Respiratory 18 Rate Blood Pressure 110/69 O2 Sat by Pulse 99 Oximetry Medical Decision Making - Medical Decision Making Was pt. sent in by a medical professional or institution (, ZANA, PRESS FEEDER, urgent care, hospital, or fdc...) When possible be specific @ -No Did you speak to anyone other than the patient for history (EMS, parent, family, police, friend...)? What history was obtained from this source @ -No Did you review nursing and triage notes (agree or disagree)? Why? @ -I reviewed and agree with nursing and triage notes Were old charts reviewed (outside hosp., previous admission, EMS record, old EKG, old radiological studies, urgent care reports/EKG's, fdc records)? Report findings @ -No old charts were reviewed Differential Diagnosis (chest pain, altered mental status, abdominal pain women, abdominal pain men, vaginal bleeding, weakness, fever, dyspnea, syncope, headache, dizziness, GI bleed, back pain, seizure, CVA, palpatations, mental health, musculoskeletal)? @ -COVID-19, influenza, RSV, strep pharyngitis, viral URI] EKG interpreted by me (3pts min.). @ none X-rays interpreted by me (1pt min.). @ -None done CT interpreted by me (1pt min.). @ -None done U/S interpreted by me (1pt. min.). @ -None done What testing was considered but not performed or refused? (CT, X-rays, U/S, labs)? Why? @ -None What meds were considered but not given or refused? Why? @ -None Did you discuss the management of the patient with other professionals (professionals i.e. ZANA Montiel, PRESS FEEDER, lab, RT, psych nurse, director social service, acquisitions analyst, teacher, protective services officer, patient case coordinator)? Give summary @ -No Was smoking cessation discussed for >3mins.? @ -No Was critical care preformed (if so, how long)? @ -No Were there social determinants of health that impacted care today? How? (Homelessness, low income, unemployed, alcoholism, drug addiction, transportation, low edu. Level, literacy, decrease access to med. care, senior living, rehab)? @ -No Was there de-escalation of care discussed even if they declined (Discuss DNR or withdrawal of care, Hospice)? DNR status @ -No What co-morbidities impacted this encounter? (DM, HTN, Smoking, COPD, CAD, Cancer, CVA, ARF, Chemo, Hep., AIDS, mental health diagnosis, sleep apnea, morbid obesity)? @ -None Was patient admitted / discharged? Hospital course, mention meds given and route, prescriptions, significant lab abnormalities, going to OR and other pertinent info. @ -Discharged. Patient is a 23-year-old female presenting with chief complaint of sore throat. Strep swab was positive. Patient will be discharged home with Augmentin. Patient will be discharged in stable condition to follow-up with her PCP. Patient expressed understanding. Undiagnosed new problem with uncertain prognosis? @ -No Drug Therapy requiring intensive monitoring for toxicity (Heparin, Nitro, Insulin, Cardizem)? @ -No Were any procedures done? @ -No Diagnosis/symptom? @ -Strep pharyngitis Acute, or Chronic, or Acute on Chronic? @ -Acute Uncomplicated (without systemic symptoms) or Complicated (systemic symptoms)? @ -Uncomplicated Side effects of treatment? @ -No Exacerbation, Progression, or Severe Exacerbation? @ -No Poses a threat to life or bodily function? How? (Chest pain, [place], [place], pneumonia, PE, COPD, DKA, ARF, appy, cholecystitis, CVA, Diverticulitis, Homicidal, Suicidal, threat to staff... and all critical care pts) @ -No - Lab Data Lab Results 07/22/23 Range/Units 10:22 Group A Strep (PCR) DETECTED A (Not Detectd) Disposition Clinical Impression: Strep pharyngitis Disposition: HOME SELF-CARE Condition: Stable Additional Instructions: Please return to the Emergency Department if symptoms worsen or any other concerns. Prescriptions: Amoxic-Pot Clav 875-125Mg [Augmentin 875-125] 1 tab PO Q12HR 10 Days #20 tab Is patient prescribed a controlled substance at d/c from ED?: No Referrals: Miguel Harrell MD [Primary Care Provider] - 1-2 days Decision Time: 11:06
[2023-07-22 11:28] VITALS: BP 112/81; PULSE 100; TEMP 99
== END 2023-07-22 11:18 | disposition home or self-care (01) ==
LOC: EC 10:10
DX: J02.0 Streptococcal pharyngitis (principal); F17.290 Nicotine dependence, other tobacco product, uncomplicated
CPT/HCPCS: 87651; 99283

== ENCOUNTER 2024-12-29 12:45 | Emergency (ER) | payer OTHER ==
[2024-12-29 13:04] VITALS: TEMP 98
[2024-12-29] MEDS: IBUPROFEN 800 MG TAB PO STA (13:32)
[2024-12-29] MEDS: ACETAMINOPHEN TAB 500 MG TAB PO STA (13:33)
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
[2024-12-29 14:56] VITALS: BP 124/82; PULSE 86; RESP 16
== END 2024-12-29 14:56 | disposition home or self-care (01) ==
LOC: EC 12:45
DX: S80.02XA Contusion of left knee, initial encounter (principal); S80.01XA Contusion of right knee, initial encounter; S09.90XA Unspecified injury of head, initial encounter; F17.290 Nicotine dependence, other tobacco product, uncomplicated; V49.9XXA Car occupant (driver) (passenger) injured in unspecified traffic accident, initial encounter; Y92.410 Unspecified street and highway as the place of occurrence of the external cause
CPT/HCPCS: 99284